=== PATIENT | male | born 1955 | race Caucasian/White ===

== ENCOUNTER 2022-10-17 10:12 | Inpatient (IN) ==
--- NOTE | 2022-10-10 09:39 | Anesthesiology Consultation ---
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 To surgeon discretion if preop COVID testing is needed. Chart Review Chart Review: Acceptable Risk for Surgery and Patient NOT seen in Pre Admission Testing History Surgery Operation Date: 10/17/22 10:50 Proposed Procedures p Robotic Laparoscopic Assisted Radical Retropubic Prostatectomy, Possible Open, Possible Pelvic Lymph Node Dissection, Possible Suprapubic Tube Placement - Daniel Bahena MD Height/Weight Height: 5 ft 9 in Weight: 81.647 kg Allergies Allergy/AdvReac Type Severity Reaction Status Date / Time No Known Allergies Allergy Verified 10/10/22 08:48 Medications Home Medications Medication Instructions Recorded Confirmed Last Taken latanoprost 0.005 % eye drops 1 drp ophthalmic (eye) QPM 07/12/22 10/10/22 Unknown tamsulosin 0.4 mg capsule 0.4 mg PO DAILY #90 caps 07/12/22 10/10/22 Unknown timolol 0.5 % eye drops 1 drp ophthalmic (eye) QAM 07/12/22 10/10/22 Unknown Past Medical History Medical History Glaucoma Prostate cancer Past Family History Family History Mother , 89yo Diabetes Stroke Chronic anticoagulation Atrial fibrillation Father , 87yo Prostate cancer Brother No problems noted. Sister No problems noted. Sister No problems noted. Son No problems noted. Son No problems noted. Son No problems noted. Past Surgical History Surgical History Hx of colonoscopy Hx of wisdom tooth extraction Social History Smoking Status: Never smoker Do You Dip or Chew Tobacco: No Hx Alcohol Use: Yes Alcohol type: beer alcohol intake frequency: a few times a week Hx Substance Use: No substance use type: does not use Lab Results Anesthesia Preop Results Results Anesthesia Widget: WBC 14.97 K/ul (4.8-10.8) H 10/03/22 Hgb 15.1 g/dl (14.0-18.0) 10/03/22 Hct 44.3 % (40.1-51.0) 10/03/22 Plt 274 K/uL (130-400) 10/03/22 Na 138 mmol/L (136-145) 10/03/22 K 3.9 mmol/L (3.5-5.1) 10/03/22 Cl 103 mmol/L (98-107) 10/03/22 CO2 30 mmol/L (21-32) 10/03/22 BUN 15 mg/dl (6-23) 10/03/22 Creat 0.90 mg/dl (0.6-1.4) 10/03/22 Glucose Level 125 mg/dl (70-99(Fasting)) H 10/03/22 Testing Electrocardiogram Date: 12/19/21 Sinus bradycardia, rate 56 bpm Chest X-Ray Date: 10/03/22 FINDINGS: PA and lateral chest radiographs are correlated with PET/CT dated 09/07/2022. The cardiomediastinal silhouette is unremarkable. The lungs and pleural spaces are clear. There is no pneumothorax. The bony thorax appears intact. Mild degenerative change is noted throughout the thoracic spine. IMPRESSION: No active disease in the chest. Other Testing PET tumor skull-mid thigh 09/07/22 Head and neck: There is expected physiologic activity within salivary glands. Thorax: No abnormal tracer uptake is seen within the thorax. Abdomen and pelvis: There is expected activity within the liver, spleen, kidneys, renal collecting system, and bladder. Low-level bowel activity is likely within physical limits. There is low-level Pylarify uptake seen posteriorly within the left lobe of the prostate gland in the mid gland to apex, likely corresponding to the patient's known prostate cancer. This is best seen on image #235 and demonstrates a maximum SUV of 2.[address] images: The visualized paranasal sinuses are clear. The mastoid air cells are well pneumatized. The salivary and thyroid glands are normal in appearance. No cervical lymphadenopathy is seen. The thoracic aorta is normal in caliber. The heart is normal in size and without pericardial effusion. The lungs and pleural spaces are clear. There is no mediastinal, hilar, or axillary lymphadenopathy. The unenhanced liver, gallbladder, spleen, pancreas, adrenal glands, and kidneys are grossly normal. The abdominal aorta is normal in caliber noting moderate atherosclerotic calcification. There is no bowel obstruction. A normal appendix is seen in the right lower quadrant. No intraperitoneal free air or abdominal ascites is identified. There is no abdominal, pelvic, or inguinal lymphadenopathy. The prostate gland is enlarged and heterogeneous. The bladder is decompressed and grossly unremarkable. No destructive bony lesion is seen. IMPRESSION: 1. There is low-level Pylarify uptake seen posteriorly within the left lobe of the prostate gland. This likely corresponds to the patient's known prostate cancer. 2. There is no evidence of Pylarify avid metastatic disease. 3. The lungs are clear. 4. Additional findings as above.
[~2022-10-17 10:12] MED LIST: HEPARIN SOD 5,000 UNIT/0.5 ML VIAL SQ SCH; LR 15ML/HR IV SCH; ceFAZolin 2000MG 2,000 MG/15 ML SYR IV SCH
[2022-10-17] MEDS: LACTATED RINGER'S 1,000 ML IV SCH ×3 (10:47→18:43)
[2022-10-17] MEDS ORDERED: ROCURONIUM BROMIDE 10 MG/ML 5 ML VIAL IV ONE ×3 (11:42→13:52)
[2022-10-17] MEDS ORDERED: ONDANSETRON INJ 2 MG/ML 2 ML VIAL ONE (11:42)
[2022-10-17] MEDS ORDERED: DEXAMETHASONE SOD INJ 4 MG/ML VIAL ONE (11:42)
[2022-10-17] MEDS ORDERED: PROPOFOL IV EMULSION 10 MG/ML 20 ML VIAL IV ONE (11:42)
[2022-10-17] MEDS ORDERED: fentaNYL citrate 100 MCG/2 ML VIAL ONE ×4 (11:42→15:15)
[2022-10-17] MEDS ORDERED: LIDOCAINE 2% MPF LOCAL 5 ML VIAL INFIL ONE (11:42)
--- NOTE | 2022-10-17 12:02 | History & Physical Bridge Note ---
Date of Service October 17, 2022 History & Physical Bridge Note I have examined the patient, reviewed the History & Physical and in the interval since the performance of the History & Physical I have noted the following changes of clinical significance: no changes noted
[2022-10-17] MEDS ORDERED: BUPIVACAINE 0.5 % 5 MG/1 ML MPF 30ML VIAL ONE (12:05)
[2022-10-17] MEDS ORDERED: ePHEDrine sulfate 50 MG/ML AMP IV PRN (12:25)
[2022-10-17] MEDS ORDERED: fentaNYL citrate 100 MCG/2 ML VIAL IV PRN (12:25)
[2022-10-17] MEDS ORDERED: ATROPINE SULFATE 0.1 MG/ML 10ML SYR IV PRN (12:25)
[2022-10-17] MEDS ORDERED: ONDANSETRON INJ 2 MG/ML 2 ML VIAL IV PRN ×2 (12:25→16:46)
[2022-10-17] MEDS ORDERED: MIDAZOLAM HCL 1 MG/ML 2ML VIAL ONE (12:26)
[2022-10-17] MEDS ORDERED: BELLADONNA/OPIUM SUPP 60 MG SUPP PR ONE ×2 (12:26→13:08)
[2022-10-17] MEDS ORDERED: FLOSEAL HEMOSTATIC MATRIX 10ML TOP ONE (13:01)
[2022-10-17] MEDS ORDERED: SURGICEL ABSORB HEMOSTAT 2IN X 14IN TOP ONE (13:01)
[2022-10-17] MEDS ORDERED: PROMETHAZINE HCL INJ 25 MG/ML 1 ML VIAL ONE (15:52)
--- NOTE | 2022-10-17 15:54 | Operative Report ---
PG Post Operative Report Pre & Post Diagnosis Operation Date: 10/17/22 11:45 Pre-Op Diagnosis: Prostate Cancer Post-Op Diagnosis: Prostate Cancer I identified the patient and participated in the time-out.: Yes Procedure Operation Date: 10/17/22 11:45 Actual Procedures p Robotic Laparoscopic Assisted Radical Retropubic Prostatectomy, Pelvic Lymph Node Dissection(Not Applicable) - Daniel Bahena MD Surgeon Daniel Bahena MD Hand Trimmer Laurie Rangel Estimated Blood Loss 100 Findings Consistent with Post-Op Diagnosis Specimens 1. Periprostatic fat 2. Prostate and seminal vesicles 3. Pelvic lymph nodesleft 4. Pelvic lymph nodesright Description of Procedure The patient was identified in the preoperative holding area, appropriate informed consents were reviewed and completed, and he was transported to the operating suite. Subcutaneous heparin was administered in the pre-operative holding area. Upon arrival in the operating suite, he received appropriate antibiotics and general anesthesia. He was positioned in dorsal lithotomy, a B&O suppository was inserted after digital rectal exam, and he was prepped and draped in standard fashion. A Trevino catheter was inserted in the sterile field. A Veress needle was passed per umbilicus with uniform insufflation of the abdomen to 15mmHg. He was placed in steep Trendelenburg position. A periumbilical incision was then made to accommodate a 12mm Visiport with 10mm 0degree laparoscope. Inspection of the abdomen was carried out, and there was no evidence of traumatic entry or injury secondary to the Veress needle. After confirming a clear anterior abdominal wall, ports were subsequently placed in standard robotic prostatectomy fashion without incident. To begin the robotic portion of the case, the left lateral aspect of the sigmoid was mobilized off of the left pelvic side wall to allow the pouch of Mikie to be appropriately visualized. I then made an incision in the pouch of Mikie, overlying the seminal vesicles. Both SVs as well as the ampullae of the vasa were entirely dissected, with the vasa transected 3cm from the prostate. The medial umbilical ligaments were then controlled with bipolar electrocautery just inferior to the umbilicus. Following cauterization, they were divided utilizing monopolar cautery. A peritoneal incision was carried from this location to the medial aspect of the internal inguinal rings bilaterally with care to avoid opening through the ring. This incision was concluded when the vas deferens was reached. Dissection of the bladder and prostate off of the posterior aspect of the pubic arch was completed allowing full visualization of the prostate. The fat overlying the prostate was removed en bloc and passed off the table as a specimen labeled "periprostatic fat". The endopelvic fascia was cleared during this portion of the procedure, and subsequently opened - first on the right and then the left. The incision through the endopelvic fascia began near the prostate-bladder junction and was carried to the apex with extreme care to preserve all lateral levator musculature as well as the periurethral musculature and sphincter complex. I additionally preserved the puboprostatic ligaments. I then controlled the DVC with a 3-0 V-lock suture in overlapping/figure of 8 fashion. The lymph node dissection was then conducted. External iliac vessels were identified on the pelvic side wall. The packet of fat and lymphatic tissue that resides just under the iliac vein was elevated and off of the vein with a split and roll technique. The packet was dissected laterally to the circumflex vein and distally to the obturator nerve which was preserved. The proximal aspect of the packet was carried towards the bifurcation of the iliac vessels. A combination of monopolar and bipolar cautery were used to assist with control. After completing the dissection on both sides, the packets were collected and passed off of the table as specimens labeled "pelvic lymph nodes". My attention then returned to the prostate, with identification of the bladder neck aided by gentle traction on the Trevino catheter and lateral to medial pressure at the presumed level of the bladder neck with the robotic instruments. An anterior cystotomy was made, the Trevino balloon deflated and the catheter guided through the incision to allow anterior retraction. I attempted to preserve maximal bladder neck musculature as I circumferentially dissected around the bladder neck. After incision through the posterior aspect of the mucosa, the dissection was carried through detrusor muscle until the bilateral ampullae of the vasa were identified. The previously dissected vasa and SVs were brought through the incision and used to elevated the prostate anteriorly. A posterior plane behind the prostate was then developed - splitting Denonvilliers's fascia. This dissection was carried as far as possible towards the apex as well as far as possible laterally. An incision in the lateral prostatic fascia was then made bilaterally to facilitate control of the vascular pedicles and preservation of the nerve bundles. Vasculature running along the posterior/lateral aspect of the prostate was preserved as well as the tissue containing the nerves. A guarded approach was taken on the patient's left. The pedicles were then controlled with a series of Weck clips. The apical attachments of the prostate were remaining at that stage. The DVC was divided after control with bipolar cautery over the prostate. Continuous inspection from anterior and lateral views allowed me to closely follow the apical contour of the prostate and maximally preserve urethral length and tissue. The prostate was entirely freed at that point, and collected in an EndoCatch bag before being moved out of the field of vision. Hemostasis was confirmed and anastomosis of the bladder and urethra was completed utilizing a double armed V- Lock stitch. A new Trevino catheter was inserted and the anastomosis tested with irrigation. There was no evidence of leak. A paula style stitch was placed bilaterally to functionally marsupialize the area of the lymph node dissection. The robot was undocked, the specimen extracted through expansion of the ian- umbilical camera port. The fascia was closed with a series of 0-PDS figure of 8 stitches. The right respiratory assistant port was closed in two layers - with a figure of 8 0-Vicryl to reapproximate the fascia followed by 4-0 Monocryl to close the skin. Monocryl was used to close all other skin incisions. All wounds were dressed with Dermabond. The case was concluded and the patient taken to the PACU in stable condition. Laurie Rangel assisted from incision to closure. I attest to the content of the Intraoperative Record and any orders documented therein. Any exceptions are noted below.
[2022-10-17 15:58] LABS: Basophils # (auto) 0.06 K/uL (0-0.2); Basophils % (auto) 0.4 %; Eosinophils # (auto) 0.09 K/uL (0-0.50); Eosinophils % (auto) 0.6 %; Hematocrit (blood only) 44.7 % (40.1-51.0); Hemoglobin 14.8 g/dl (14.0-18.0); Immature Granulocytes # (auto) 0.11 K/uL (0.00-0.02); Immature Granulocytes % (auto) 0.7 %; Lymphocytes # (auto) 2.42 K/uL (1.2-3.4); Mean Corpuscular Hemoglobin 30.8 pg (25.0-34.0); Mean Corpuscular Hgb Conc 33.1 g/dL (32.0-36.0); Mean Corpuscular Volume 93.1 fL (80.0-100.0); Mean Platelet Volume 9.8 fL (9.4-12.4); Monocytes # (auto) 0.43 K/uL (0.24-0.82); Monocytes % (auto) 2.8 %; Neutrophils # (auto) 12.06 K/uL (1.4-6.5); Neutrophils % (auto) 79.5 %; Platelet Count 190 K/uL (130-400); RDW Coefficient of Variation 12.7 % (11.5-14.5); White Blood Count 15.17 K/ul (4.8-10.8)
[2022-10-17] MEDS ORDERED: PROMETHAZINE HCL 6.25 MG in SODIUM CHLORIDE 0.9% 50 ML IV STA (15:59)
[2022-10-17 16:25] LABS: BUN Creatinine Ratio 16.3 (10-20); Calcium 8.6 mg/dl (8.5-10.1); Creatinine Clr Calc Pharmacy 83.4 ml/min; Est GFR (Non-African American) 89.7 ml/min; Potassium 4.1 mmol/L (3.5-5.1)
--- NOTE | 2022-10-17 16:32 | Anesthesiology Progress Note ---
Date of Service October 17, 2022 Anesthesia Post Procedure Vital Signs Vital Signs: Temp Pulse Pulse Resp BP Pulse Ox O2 Del Method 10/17/22 16:30 97.0 F L 79 21 150/86 H 100 Room Air 10/17/22 16:20 71 13 141/78 H 99 Oxymask 10/17/22 16:10 67 12 140/86 99 Oxymask 10/17/22 16:00 72 17 143/90 H 100 Oxymask 10/17/22 15:50 88 14 145/94 H 100 Oxymask 10/17/22 15:40 90 13 150/87 H 100 Oxymask 10/17/22 15:32 97.7 F 105 H 13 136/98 100 Oxymask 10/17/22 10:36 98.1 F 79 16 150/91 H 99 Room Air O2 Flow Rate 10/17/22 16:30 10/17/22 16:20 2 10/17/22 16:10 4 10/17/22 16:00 4 10/17/22 15:50 4 10/17/22 15:40 6 10/17/22 15:32 6 10/17/22 10:36 Pain Intensity Penis: Pain Intensity: 4 Transfer of Care Handoff Completed per policy Notes Mental Status: alert / awake / arousable and participated in evaluation Patient Amnestic to Procedure: Yes Nausea / Vomiting: adequately controlled Pain: adequately controlled Airway Patency, RR, SpO2: stable & adequate BP & HR: stable & adequate Hydration State: stable & adequate Anesthetic Complications: no major complications apparent and Pt Satisfied with anesthetic care
[2022-10-17] MEDS ORDERED: MoRPHine SULFATE 2 MG/ML CARP IV PRN (16:46)
[2022-10-17] MEDS ORDERED: oxyCODONE HCL IR 5 MG TAB (IMMEDIATE RELEASE) PO PRN ×2 (16:46)
[2022-10-17] MEDS ORDERED: MoRPHine SULFATE 4 MG/ML 1 ML CARP\\VIAL IV PRN (16:46)
[2022-10-17] MEDS: ACETAMINOPHEN 325 MG TAB PO SCH ×2 (17:06→23:48)
[2022-10-17] MEDS: KETOROLAC TROMETHAMINE 15 MG/ML VIAL IV PRN (17:51)
[2022-10-17] MEDS: ceFAZolin 2000MG 2,000 MG/15 ML SYR IV SCH (18:51)
[2022-10-17] MEDS: LATANOPROST 0.005% OP SOLN 2.5 ML BTL OP SCH (20:52)
[2022-10-17] MEDS: DOCUSATE SODIUM 100 MG CAP PO SCH (20:52)
[2022-10-17] MEDS ORDERED: HEPARIN SOD 5,000 UNIT/0.5 ML VIAL SQ SCH (21:00)
[2022-10-18] MEDS ORDERED: SODIUM CHLORIDE 0.9% 1000ML 500 ML IV ONE (00:03)
[2022-10-18] MEDS: LACTATED RINGER'S 1,000 ML IV SCH ×2 (02:09→13:25)
[2022-10-18] MEDS: ceFAZolin 2000MG 2,000 MG/15 ML SYR IV SCH (02:09)
[2022-10-18] MEDS: ACETAMINOPHEN 325 MG TAB PO SCH ×3 (05:36→17:59)
[2022-10-18] MEDS ORDERED: SODIUM CHLORIDE 0.9% 1000ML 1,000 ML IV ONE (06:23)
[2022-10-18 07:03] LABS: Basophils # (auto) 0.02 K/uL (0-0.2); Basophils % (auto) 0.1 %; Hemoglobin 10.6 g/dl (14.0-18.0); Immature Granulocytes # (auto) 0.08 K/uL (0.00-0.02); Immature Granulocytes % (auto) 0.5 %; Lymphocytes # (auto) 2.71 K/uL (1.2-3.4); Mean Corpuscular Hemoglobin 31.3 pg (25.0-34.0); Mean Corpuscular Hgb Conc 33.1 g/dL (32.0-36.0); Mean Corpuscular Volume 94.4 fL (80.0-100.0); Mean Platelet Volume 10.2 fL (9.4-12.4); Monocytes # (auto) 1.47 K/uL (0.24-0.82); Monocytes % (auto) 9.2 %; Neutrophils # (auto) 11.69 K/uL (1.4-6.5); Neutrophils % (auto) 73.2 %; Platelet Count 221 K/uL (130-400); RDW Coefficient of Variation 12.9 % (11.5-14.5); RDW Standard Deviation 44.8 fL (36.4-46.3); Red Blood Count 3.39 M/uL (4.63-6.08); White Blood Count 15.97 K/ul (4.8-10.8)
[2022-10-18 07:58] LABS: BUN Creatinine Ratio 17.9 (10-20); Calcium 7.8 mg/dl (8.5-10.1); Creatinine Clr Calc Pharmacy 67.6 ml/min; Est GFR (African American) 83.8 ml/min; Est GFR (Non-African American) 72.3 ml/min; Potassium 4.2 mmol/L (3.5-5.1)
--- NOTE | 2022-10-18 08:05 | Urology Progress Note ---
Date of Service October 18, 2022 Assessment & Plan (1) Prostate cancer: Plan: Postop day #1 status post prostatectomy Doing okay Hemoglobin is drifted slightly, has a small hematoma on the right side under the right lateralmost port Creatinine appropriate at 1, lower urine output than I would ideally likebolused IV fluids this morning Await some bowel function Ambulate Likely not ready for discharge home this morning Admission and Anticipated Discharge Date Admission Date: October 17, 2022 Subjective Doing okay this morning, had a bit of a rough night Cramping abdominal discomfortparticular in upper abdomen Mild nausea but no vomiting Physical Exam Physical Exam: Incisions appropriate, has a hematoma under the right lateralmost port Small amount of bruising under the midline incision Abdomen appropriately tender, mildly distended but not rigid or tympanitic Clear urine Results & Data ([facility]) Vital Signs (Past 12 Hours) Vital Signs Temp Pulse Pulse Resp BP BP Pulse Ox 10/18/22 07:10 36.9 C 104 H 18 137/68 97 10/18/22 07:02 37 C 101 H 18 118/76 97 10/18/22 06:25 110 H 95/63 L 10/18/22 05:55 112/71 10/18/22 00:55 36.9 C 106 H 16 113/72 95 10/18/22 04:27 37 C 110 H 18 101/62 97 10/18/22 03:54 37.4 C 110 H 16 100/69 96 10/17/22 23:50 69 14 73/35 L 10/18/22 00:31 37.1 C 96 H 18 109/73 96 10/17/22 21:00 37 C 107 H 18 116/71 97 O2 Del Method 10/18/22 07:10 Room Air 10/18/22 07:02 Room Air 10/18/22 06:25 10/18/22 05:55 10/18/22 00:55 Room Air 10/18/22 04:27 Room Air 10/18/22 03:54 Room Air 10/17/22 23:50 Room Air 10/18/22 00:31 Room Air 10/17/22 21:00 Room Air PG Care Time/CCT Total # of Minutes Spent Total Time Spent with Patient: Total time spent is greater than 50% in coordination of care (as documented) at patient's floor/unit and/or counseling patient: Coding Level of Care Code None Diagnoses Prostate cancer C61
[2022-10-18] MEDS: DOCUSATE SODIUM 100 MG CAP PO SCH ×2 (12:34→22:10)
[2022-10-18] MEDS: TIMOLOL MALEATE 0.5% OP SOLN 5 ML BTL OP SCH (12:38)
[2022-10-18] MEDS: KETOROLAC TROMETHAMINE 15 MG/ML VIAL IV PRN (15:50)
[2022-10-18] MEDS: LATANOPROST 0.005% OP SOLN 2.5 ML BTL OP SCH (22:08)
[2022-10-19] MEDS: ACETAMINOPHEN 325 MG TAB PO SCH ×3 (00:09→11:24)
[2022-10-19] MEDS: LACTATED RINGER'S 1,000 ML IV SCH ×2 (00:09→12:40)
[2022-10-19 08:10] LABS: Hemoglobin 7.8 g/dl (14.0-18.0); Mean Corpuscular Hemoglobin 30.1 pg (25.0-34.0); Mean Corpuscular Hgb Conc 32.5 g/dL (32.0-36.0); Mean Corpuscular Volume 92.7 fL (80.0-100.0); Mean Platelet Volume 10.1 fL (9.4-12.4); Platelet Count 146 K/uL (130-400); RDW Coefficient of Variation 12.9 % (11.5-14.5); RDW Standard Deviation 43.8 fL (36.4-46.3); Red Blood Count 2.59 M/uL (4.63-6.08); White Blood Count 11.96 K/ul (4.8-10.8)
--- NOTE | 2022-10-19 08:10 | Urology Progress Note ---
Date of Service October 19, 2022 Assessment & Plan (1) Prostate cancer: Plan: - Pt POD#2 s/p RALP - Subjectively improving - Afebrile, lab work reviewed - creatinine 0.77, WBC 11.96 - Hemoglobin down to 7.8 this am, possibly from right hematoma - he remains hemodynamically stable - Incisions appropriate, hematoma at right lateral port appears stable from yesterday - Tolerating clear liquids - Abd discomfort and nausea have resolved, + flatus - Will advance to full liquids this am - Trevino draining clear urine - Urine output improved overnight - Ambulated yesterday afternoon - Anticipate home later this morning if he continues to progress - Will arrange appropriate outpatient follow-ups with our service - Expected clinical course reviewed, all questions answered Admission and Anticipated Discharge Date Admission Date: October 17, 2022 Supervising Physician Co-Signing Physician Notes Subjectively doing much better today Hemoglobin is dropped a bit and he has had some progression of the hematoma on the right flank, however I think that he is stable now Ambulatory Tolerating diet Anxious to go home, I think he is very safe for discharge home Subjective Patient reports feeling better this morning. No acute issues overnight. No abdominal pain, nausea or vomiting. Mild discomfort near right lateral incision. He is passing flatus. Trevino intact and draining clear urine. Tolerating clear liquid diet. No fever or chills. Review of Systems Constitutional: as per Subjective / HPI Gastrointestinal: as per Subjective / HPI Genitourinary: + as per Subjective / HPI Physical Exam Constitutional: well developed and well nourished; no acute distress Respiratory: normal respiratory effort; no respiratory distress and no labored breathing Gastrointestinal (Abdomen): Inspection/Auscultation: abdomen not distended Percussion/Palpation: + abdomen tender (appropriately tender near incisions) and abdomen soft Skin: Incisions appropriate, has a hematoma under the right lateralmost port Small amount of bruising under the midline incision Psychiatric: Orientation: alert and oriented x 3 Genitourinary: Trevino intact and draining clear urine Results & Data ([facility]) Vital Signs (Past 12 Hours) Vital Signs Temp Pulse Resp BP Pulse Ox O2 Del Method 10/19/22 07:17 36.4 C L 79 16 117/63 95 Room Air 10/18/22 21:16 36.7 C 89 16 117/69 97 Room Air PG Care Time/CCT Total # of Minutes Spent Total Time Spent with Patient: Total time spent is greater than 50% in coordination of care (as documented) at patient's floor/unit and/or counseling patient: Coding Level of Care Code None Diagnoses Prostate cancer C61
[2022-10-19 08:37] LABS: BUN Creatinine Ratio 18.2 (10-20); Calcium 7.7 mg/dl (8.5-10.1); Creatinine Clr Calc Pharmacy 93.1 ml/min; Est GFR (African American) 108.8 ml/min; Est GFR (Non-African American) 93.9 ml/min; Potassium 4.4 mmol/L (3.5-5.1)
[2022-10-19] MEDS: TIMOLOL MALEATE 0.5% OP SOLN 5 ML BTL OP SCH (08:51)
[2022-10-19] MEDS: DOCUSATE SODIUM 100 MG CAP PO SCH (08:54)
[2022-10-19 08:58] LABS: Basophils # (auto) 0.03 K/uL (0-0.2); Basophils % (auto) 0.3 %; Eosinophils # (auto) 0.02 K/uL (0-0.50); Eosinophils % (auto) 0.2 %; Immature Granulocytes # (auto) 0.04 K/uL (0.00-0.02); Immature Granulocytes % (auto) 0.3 %; Lymphocytes # (auto) 4.49 K/uL (1.2-3.4); Lymphocytes % (auto) 37.5 %; Monocytes # (auto) 1.15 K/uL (0.24-0.82); Monocytes % (auto) 9.6 %; Neutrophils # (auto) 6.23 K/uL (1.4-6.5); Neutrophils % (auto) 52.1 %; RBC Morphology Unremarkable
--- NOTE | 2022-10-30 10:06 | Coding Query ---
CODING QUERY To promote full compliance with coding requirements relating to patient care, provider participation is requested in all cases of floor renovator uncertainty. Please assist us with the question(s) below: Coding Question(s): The Progress Notes on 10/18 and 10/19 document Hematoma. Please specify below, in your clinical opinion, regarding the Hematoma: ( ) likely a Postoperative Complication ( x) Not a Postoperative Complication - small port site hematoma, common post op occurrence, but not really a complication ( ) Other: Please Specify Physician's Response(s): Thank you Lyssa Prado Principal Diagnosis: "that condition established after study, to be chiefly responsible for occasioning the admission of the patient to the hospital for care." Co-Existing Principal Diagnosis: "when two or more diagnoses equally meet the criteria for principal diagnosis as determined by the circumstances of admission, diagnostic work up, and/or therapy provided, and the Alphabetic Index, Tabular List, or another coding guideline does not provide sequencing direction, any one of the diagnoses may be sequenced first." "When the physician has documented what appears to be a current diagnosis in the body of the record, but has not included the diagnosis in the final diagnostic statement, the physician should be asked whether the diagnosis should be added." (Source Coding [facility] 2 QTR90. p3-4) DANNY
--- NOTE | 2022-10-31 08:01 | Discharge Summary ---
Date of Service October 31, 2022 Principal Diagnosis prostate cancer Discharge Data Allergies Allergy/AdvReac Type Severity Reaction Status Date / Time No Known Allergies Allergy Verified 10/30/22 08:43 Procedures Performed Operation Date: 10/17/22 11:45 Actual Procedures p Robotic Laparoscopic Assisted Radical Retropubic Prostatectomy, Pelvic Lymph Node Dissection(Not Applicable) - Daniel Bahena MD Hospital Course (1) Prostate cancer: Patient admitted for a robotic prostatectomy - details of the procedure as dictated previously in my operative report - in summary, he tolerated the procedure very well - he was in stable condition overnight with appropriate urine output and stable labs He did have some abdominal pain and elected to stay for 1 additional night in the hospital He also had a small hematoma around his right port site but no significant pain at this location His hemoglobin stabilized prior to discharge home - he was subsequently discharged home with a diaz catheter - he was in stable condition at the time of discharge Total Time Total Time Spent Total Time Spent (In Minutes): 30 Discharge Plan Discharge Items Patient Disposition: Home - Self-Care Reason For Visit: Prostate Cancer Discharge Diagnosis: Prostate Cancer Activity: Per Instructions section Lifting: No more than 10 pounds Bathing Comment: Okay to shower, no tub bath or soaking Sexual Activity: Wait until after follow-up appointment Exercise/Sports: Wait until after follow-up appointment Driving/Machine Use: No driving while taking prescription pain medication Non-emergency contact: Surgeon and Urologist Call non-emergency contact if: your pain is not controlled, your pain is worsening, you have a fever, your temperature is above 101, your wound has increased redness, your wound has increased drainage and your wound pain has increased Follow-up/Referrals: Daniel Bahena MD [Physician] - 10/24/22 11:20 am Aaron Beasley [Primary Care Provider] - 10/26/22 1:30 pm Diet: Regular Addtl Attending Provider Instructions: Please take all medications as prescribed and keep all follow-ups as scheduled. Please call our office at [phone] with any questions, concerns or need to reschedule appointments for any reason. We are happy to assist you. We have sent an antibiotic to your pharmacy of choice. Please begin antibiotic as prescribed the day BEFORE your scheduled voiding trial at [facility]. Please continue antibiotic every 12 hours through the day AFTER your voiding trial. Activity: We recommend having someone with you for the first few days after surgery to help care for you. For the first 2 weeks after surgery, we would like you to get up and walk around your house. However, we recommend limit physical activity that would increase your heart rate. This will allow your body to rest and heal. Take naps if you feel tired. Don't lift anything heavier than 10 pounds, mow the law or ride a bicycle until your follow-up appointment. Please avoid long car rides. Home Care: Unless directed otherwise, drink 6 to 8 glasses of water a day (enough to keep your urine light colored). This will also help keep a healthy flow of urine. We recommend using a stool softener for the first two weeks to avoid constipation. Diaz Catheter or Suprapubic Catheter care: Keep the catheter well secured with either a leg back or leg strap with large bag. Empty your bag when it's about half full. You may notice some blood in the bag. This is normal after surgery and while the catheter is in place. Use mild soap (such as Dove or Dial) and water to wash the catheter and the head of your penis daily, or more frequently if needed. Return to your normal diet, we encourage good protein intake to promote healing. You may shower as normal. Please avoid tub baths or soaking until catheter removed and incisions well healed. Wearing sweat pants while you have the catheter is recommended, they will be more comfortable. Follow-up Your follow up appointments for having your catheter removed, and follow up with your physician should already be scheduled. If you have any questions regarding this, please contact our office. Your final pathology report will be discussed at your physician follow-up appointment. Call [facility] at [phone] right away if you have any of the following: Chest pain or trouble breathing (call 911 or go to the hospital) Fever of 101F or higher, uncontrolled vomiting Heavy bleeding, clots, or bright red blood from the catheter Catheter that falls out or stops draining Foul-smelling discharge from your catheter Redness, swelling, warmth, or increased pain at your incision site Drainage, pus, or bleeding from your incision Pending Studies at Discharge: Yes Studies:: Pathology Stand-Alone Forms: [facility], Pain - Opioid Pain Management, Smoking Cessation Medications and DC Order Prescriptions: New oxycodone-acetaminophen [Percocet] 5-325 mg tablet 1 tab PO TID PRN (Reason: pain) Qty: 7 0RF Rx Instructions: post operative pain docusate sodium [Colace] 100 mg capsule 100 mg PO BID Qty: 60 0RF Rx Instructions: Take twice daily for 2 weeks, then as needed for constipation. Continued timolol 0.5 % drops 1 drp ophthalmic (eye) QAM latanoprost 0.005 % drops 1 drp ophthalmic (eye) QPM Discontinued tamsulosin 0.4 mg capsule 0.4 mg PO DAILY Qty: 90 3RF Label Comments: haven't been using this No Action oxybutynin chloride 5 mg tablet 5 mg PO BID Qty: 30 0RF phenazopyridine 97.5 mg tablet 97.5 mg PO BID PRN (Reason: dysuria) Qty: 30 0RF Discharge Orders: Discharge Order (Routine); Ordered 10/19/22 Ordered By: Laurie Vasquez/Other Patient Handouts: Urinary Catheter Bag Empty Clean, Indwelling Urinary Catheter Dc, Leg Bag Care Dc Admission Data Admit Date/Time: 10/17/22 15:25 Attending Provider: Daniel Bahena Admit Provider: Daniel Bahena Primary Care Provider: Aaron Beasley Other Interventions: Discharge Summary Assessment (RN) Last Done: 10/19/22 10:23 Coding Level of Care Code HOSP INP/OBS DISCH 30 MIN/LESS Diagnoses Prostate cancer C61
== END 2022-10-19 13:15 | disposition home or self-care (01) | DRG 707 ==
LOC: ASU 10:12 → 3W 15:25